=== PATIENT | male | born 2000 | race African-American/Black ===

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

== ENCOUNTER 2019-12-23 23:44 | Emergency (ER) | payer OTHER ==
--- NOTE | 2019-12-24 01:18 | ED Physician Documentation ---
PD HPI LOWER EXT INJURY - Stated complaint Stated Complaint: RT ANKLE INJURY - Chief complaint Chief Complaint: Ext Problem - History of Present Illness PD HPI LOW EXT INJURY LOCATION: Right, Ankle Type of injury: Twist Timing - onset: Enter time (noon), Yesterday Timing - details: Abrupt onset Pain level now: 4 Improved by: Rest Worsened by: Moving, Palpating Associated symptoms: Swelling. No: Weakness, Numbness Similar symptoms before: Has not had sx before Recently seen: Not recently seen - Additional information Additional information: c/o right ankle pain, sudden onset noon yesterday when running (practicing for football). patient says the ankle "rolled". presents due to ongoing, and gradually worsening, pain and swelling. worse with weight-bearing; he can no longer bear weight due to the pain Review of Systems Skin: denies: Abrasion (s), Laceration (s) Musculoskeletal: reports: Joint pain, Joint swelling, Pain with weight bearing Neurologic: denies: Focal weakness, Numbness PD PAST MEDICAL HISTORY - Past Medical History Past Medical History: Yes Cardiovascular: None Respiratory: None Neuro: None Endocrine/Autoimmune: None GI: None : None HEENT: None Psych: None Musculoskeletal: None Derm: None - Past Surgical History Past Surgical History: Yes General: Other Ortho: Other - Present Medications Home Medications: Ambulatory Orders Medication Instructions Recorded Confirmed No Known Home Medications 12/23/19 12/23/19 - Allergies Allergies/Adverse Reactions: Allergies Allergy/AdvReac Type Severity Reaction Status Date / Time No Known Drug Allergies Allergy Verified 12/23/19 23:50 - Social History Does the pt smoke?: No Smoking Status: Never smoker Does the pt drink ETOH?: No Does the pt have substance abuse?: No - Immunizations Immunizations are current?: Yes - POLST Patient has POLST: No PD ED PE NORMAL - Vitals Vital signs reviewed: Yes - General General: Alert and oriented X 3, No acute distress, Well developed/nourished - Derm Derm: Normal color, Warm and dry - Extremities Extremities: No deformity - Neuro Neuro: No motor deficit, No sensory deficit PD ED PE EXPANDED - Extremities Extremities: Other (tenderness and swelling right ankle, predominantly lateral malleolus with milder swelling/tenderness anterior aspect as well as lateral aspect of hindfoot) Results - Vitals Vitals: Oxygen O2 Source Room air - Rads (name of study) right foot xrays Radiology: Prelim report reviewed, See rad report right ankle xrays Radiology: Prelim report reviewed, See rad report PD MEDICAL DECISION MAKING - ED course Complexity details: reviewed results, re-evaluated patient, considered differential, d/w patient Departure - Departure Disposition: 01 Home, Self Care Clinical Impression: Ankle sprain Condition: Good Instructions: ED Crutch Walking, ED Sprain Ankle Follow-Up: Luis Hussein MD [Provider Admit Priv/Credential] - Discharge Date/Time: 12/24/19 02:35
[2019-12-24] MEDS ORDERED: IBUPROFEN 600 MG TABLET PO STA (01:23)
[2019-12-24 02:36] VITALS: BP 128/63
--- NOTE | 2019-12-24 07:22 | XRAY Report ---
PROCEDURE: Foot 3 View RT INDICATIONS: injury, pain, tenderness TECHNIQUE: 3 views of the foot were acquired. COMPARISON: None FINDINGS: Bones: No fractures or dislocations. No suspicious bony lesions. Soft tissues: No tibiotalar joint effusion. Achilles tendon appears normal. IMPRESSION: Intact right foot. Concordant with preliminary report. Reviewed by: Nava Streeter MD on 12/24/2019 7:21 AM PST Approved by: Nava Streeter MD on 12/24/2019 7:21 AM [facility] Station ID: [id number]
--- NOTE | 2019-12-24 07:22 | XRAY Report ---
PROCEDURE: Ankle 3 View RT INDICATIONS: injury, pain, tenderness TECHNIQUE: 3 views of the ankle were acquired. COMPARISON: None FINDINGS: Bones: No fractures or dislocations. Ankle mortise is normally aligned. No suspicious bony lesions . Soft tissues: No tibiotalar joint effusion. Achilles tendon appears normal. IMPRESSION: Intact right ankle. Concordant with preliminary report. Reviewed by: Nava Streeter MD on 12/24/2019 7:21 AM PST Approved by: Nava Streeter MD on 12/24/2019 7:21 AM PST Station ID: [id number]
== END 2019-12-24 02:35 | disposition home or self-care (01) ==
LOC: ED 23:44
DX: S93.401A Sprain of unspecified ligament of right ankle, initial encounter (principal); X50.1XXA Overexertion from prolonged static or awkward postures, initial encounter; Y93.02 Activity, running; Y92.39 Other specified sports and athletic area as the place of occurrence of the external cause
CPT/HCPCS: 73610; 73630; 99282; 99283; A9270